=== PATIENT | female | born 1990 | race Caucasian/White ===

== ENCOUNTER → 2021-05-20 | Outpatient (CLI) | payer SELFPAY ==
--- NOTE | 2021-05-20 | EMB_PTH ---
PATIENT: SAMPSON MACK LOC: [facility] U#:[id number] AGE/SX: 30/F ROOM: RE05/20/[address]: Dr. Bo Moraes MD : [id number] BED: DIS: 05/20/2021 SPEC #: [id number] RECD: 05/20/21 17:13 STATUS: TRAVIS ALEJANDRO #: [id number] NICO: 05/20/21 00:[address]: Bo Moraes DEPT: SURGICAL PATHOLOGY RECD BY: Aaron Cash Tissues: Endometrium, NOS Procedures: Surgery Specimen Level IV HEADER OPERATION: Endometrial biopsy PRE-OP DIAGNOSIS: N92.1 TISSUE SUBMITTED: Endometrial biopsy MICROSCOPIC DIAGNOSIS Endometrial biopsy: Secretory endometrium. STEPHEN:altagracia 05/22/2021 MICROSCOPIC DESCRIPTION Slides are reviewed. GROSS DESCRIPTION Received in fixative is one container labeled with the patient's name and designated endometrial biopsy. The specimen consists of multiple irregular and elongated fragments of pink-garnica soft tissue that in aggregate measure 3 x 2 x 0.2 cm. The specimen is totally submitted in one cassette. / AM:altagracia 05/21/21 TC:4 CPT: 53423
== END | disposition home or self-care (01) ==
LOC: LABSPEC 16:39
PROVIDERS: Visit Provider Obstetrics & Gynecology
DX: N92.1 Excessive and frequent menstruation with irregular cycle (principal)
CPT/HCPCS: 88305

== ENCOUNTER 2021-06-29 09:09 | Day surgery (SDC) | payer SELFPAY, OTHER ==
[2021-06-23 11:43] LABS: Hematocrit 39.1 % (37-47); Hemoglobin 12.9 g/dL (12.0-15.0); Mean Corpuscular Hgb 30.4 pg (27.0-32.0); Mean Corpuscular Volume 92.2 fL (81-99); Platelet Count 244 K/mm3 (150-450); RBC Distribution Width CV 11.9 % (11.6-14.6); Red Blood Count 4.24 M/mm3 (4.2-5.4); White Blood Count 5.2 K/mm3 (4.4-11.0)
[2021-06-23 11:53] LABS: Partial Thromboplast Time 25.3 Seconds (24.1-36.2); Prothrombin Time (Protime)PT. 12.1 SECONDS (11.7-14.9)
[2021-06-23 12:07] LABS: Internal QC Validated? YES +Cl - CLEAR BKGD; Pregnancy, Serum, hCG Quali. NEGATIVE Negative
[2021-06-23 12:09] LABS: Creatinine, Serum 0.71 mg/dL (0.55-1.02); EST Glomerular Filtration Rate 101 mL/min (>60); Est Glom Filt Rate - Afr Amer 122 mL/min (>60)
[2021-06-25 11:09] LABS: Magnesium 2.1 mg/dL (1.6-2.6)
--- NOTE | 2021-06-28 12:18 | PCM.HP.BLA ---
History and Physical Date of Admission: 06/29/21 Surgical History and Physical Alice Mathur, a 31 year old female 4 0 2 0 4, presents for LAVH/LSO/RS on June 29, 2021 at 10:00. -- Menorrhagia, Mass in Uterus -- Menses flow has been heavier in the last 2 months, and she has periodic LLQ pain. US done at [facility] on 04-17-21 revealed Uterine mass adjacent to the endometrial stripe(report scanned to chart). Uterine Mass which began Found on US 04/17/21. Alice claims it started suddenly and has been present LLQ pain x 2 month. It occurs all the time. It is located in the Uterus. Alice characterizes the quality heavier menses, LLQ pain x 2 months. Severity is moderate and not improving; Associated signs and symptoms are Menses have been heavy for 3 to 4 years and getting heavier as time goes on. Associated signs and symptoms are Occasional left lower quadrant tenderness which is going on for quite some time. Ultrasound showed a 10.6 cm uterus with a 1.6 cm mass, likely fibroid. Left and right ovaries appear normal with some follicles present. MEDICATIONS HISTORY: Patient is also takin. No Meds ALLERGIES: No Known Allergies Infections - Chicken pox Illnesses - no serious past illnesses Accidents - None Hospitalizations - see surgery Review of Systems: GENERAL - Denies fever, or chills SKIN - Denies skin changes EYES - Denies visual changes EARS - Denies difficulty hearing NOSE - Denies nasal congestion or bleeding MOUTH - Denies sore throat or difficulty swallowing NECK - Denies pain or swelling RESPIRATORY - Denies shortness of breath or wheezing CARDIOVASCULAR - Denies palpitations or chest pain GASTROINTESTINAL - Denies nausea, vomiting, diarrhea, constipation GENITOURINARY - Denies dysuria, frequency of urination, incontinence of urine MUSCULOSKELETAL - Denies joint or muscle pain NEUROLOGICAL - Denies localized numbness or weakness PSYCHIATRIC - Denies depression or anxiety ENDOCRINE - Denies heat or cold intolerance, weight loss or gain HEMATO-IMMUNOLOGIC - Denies excesive bleeding with cuts SOCIAL HISTORY: Alcohol Use - None Smoking - Never Diet - no special diet Lifestyle - moderate stress lifestyle and Exercise - active work Seat Belt Use - occasional Employer - Property [employer] Illicit Drug Use - None Sexual Activity - Spouse-Sig Other Name - Pete Spouse-Sig Other Occupation - [employer] Children Name(s) - 4 children Control - Natural Family Planning FAMILY HISTORY: MENSTRUAL HISTORY: LMP Known?- DefiniteAmount/Duration - 5-6 DAYS, Regularity - Regular, Frequency - monthly days, LMP - 05/26/21, Age Onset Menarche - 11 PAST PREGNANCIES: Total Pregnancies - 6; Full Term Pregnancies - 4; Premature - 0; Abortions, Induced - 0; Abortions, Spontaneous - 2; Ectopics - 0; Multiple Births - 0; Living Children - 4 SURGICAL HISTORY: 2006 (R) Ear Surgery PHYSICAL EXAM BP- 118/84 Sitting, Right arm, regular cuff Weight- 157.47568 lbs Height- 65 inch BMI:26.1 CONSTITUTIONAL - NAD, well nourished, and well developed SKIN - No rash, lesions, or ulcers HEENT - Normocephalic, PERRLA, EOMI NECK - No nodes, no nuchal rigidity and thyroid normal size and texture LYMPH NODES - Palpation of lymph nodes in neck and groins within normal limits LUNGS - CTA x2 without wheezes, crackles or rales CARDIAC - Regular rate and rhythm without rubs, murmurs, or gallops ABDOMEN - Without hepatosplenomegaly, distention, masses, rebound, or guarding; normal bowel sounds; no hernias EXTREMITIES - No edema or calf tenderness NEUROLOGICAL - Cranial nerves II-XII grossly intact PSYCHIATRIC - A and O to time, place, person, mood and affect External Genitial Vagina - non-tender without lesions Urethra/Urethral Meatus - non-tender Bladder - non-tender Vagina - vaginal white are pink and moist without loss of rugae and no evidence of atropy Cervix - without cervical motion tenderness and has normal size and features without evident lesions Uterus - enlarged uterus 8 wks, wt 125-150 g Adnexa - clear without masses or tenderness ASSESSMENT/PLAN: 1. Premenopausal Menorrhagia and Submucous Leiomyoma Heavy menses likely due to submucous fibroids and slightly enlarged uterus. EMBx ok. Discussed options for treatment including withdrawing with progesterone and repeating the ultrasound versus proceeding with an LAVH/LSO/RS. Patient desires the surgery. Discussed risk, benefits, and alternatives at length and all questions were answered.
[2021-06-29 09:51] LABS: Internal QC Validated? YES +Cl - CLEAR BKGD; Pregnancy, Urine Negative Negative
[2021-06-29 10:11] VITALS: BP 140/87; PULSE 117; RESP 16; TEMP 36.9; O2SAT 99; BMI 27.6
[2021-06-29] MEDS: Lactated Ringers 1,000 ML 40 ML IV (10:30)
[2021-06-29] MEDS: Acetaminophen 500 MG Tablet 1000 MG PO (10:31)
[2021-06-29] MEDS: Gabapentin 600 MG Tablet PO (10:31)
--- NOTE | 2021-06-29 10:42 | EKG12_ITS ---
Test Reason : PRE OP Blood Pressure : / mmHG Vent. Rate : 139 BPM Atrial Rate : 139 BPM P-R Int : 142 ms QRS Dur : 080 ms QT Int : 278 ms P-R-T Axes : 067 057 -38 degrees QTc Int : 423 ms Sinus tachycardia Possible Right atrial enlargement Nonspecific ST depression Nonspecific T wave abnormality Abnormal ECG Confirmed by JEANINE DARBY, MO ([id number]), editor dictionary MORALES PEDRO ([id number]) on 07/03/2021 1:57:20 PM Referred By: Bo Moraes Confirmed By:MO SOLORZANO MD
[2021-06-29 12:26] LABS: Bedside Glucose 102 mg/dL (70-110)
== END 2021-06-29 11:46 ==
LOC: SDC 09:12 → AC 09:13
PROVIDERS: Anesthesiology; PCP Nurse Practitioner Family; Referring Provider Obstetrics & Gynecology; Visit Provider Obstetrics & Gynecology
DX: Z01.812 Encounter for preprocedural laboratory examination (principal); Z20.822 Contact with and (suspected) exposure to COVID-19; N92.4 Excessive bleeding in the premenopausal period; D25.0 Submucous leiomyoma of uterus
CPT/HCPCS: 36415; 81025; 82565; 82962; 83735; 84703; 85027; 85610; 85730; 86850; 86900; 86901; 87426; 93005; J7120; J2405